=== PATIENT | male | born 1945 | race Hispanic/Latino ===

== ENCOUNTER 2018-08-02 12:34 | Day surgery (SDC) | payer MEDICARE, BC ==
[2018-06-12 11:54] VITALS: BMI 29.0
[2018-08-02 13:18] LABS: BASO # 0.04 K/mm3 (0.0-2.0); BASO % 0.4 % (0.0-3.0); EOS # 0.2 (0.0-0.7); EOS % 1.7 % (1.5-5.0); LYMPH # 2.8 (1.2-3.4); LYMPH % 27.1 % (22.0-35.0); MEAN CELL VOLUME 98.2 fl (80.0-105.0); MEAN CORPUSCULAR HEMOGLOBIN 30.2 pg (25.0-35.0); MEAN CORPUSCULAR HGB CONC 30.7 g/dl (31.0-37.0); MEAN PLATELET VOLUME 8.8 fl (7.0-11.0); MONO # 0.9 (0.1-0.6); MONO % 8.8 % (1.0-6.0); RBC 3.98 10^6/uL (3.5-6.1); RED CELL DISTRIBUTION WIDTH 15.2 % (11.5-14.5); WHITE BLOOD COUNT 10.5 10^3/uL (4.5-11.0)
[2018-08-02 13:25] LABS: CALCIUM 9.6 mg/dL (8.4-10.5); INR 0.96; PROTHROMBIN TIME 10.8 SECONDS (9.4-12.5)
[2018-08-02 13:39] VITALS: TEMP 97.8
[2018-08-02] MEDS ORDERED: Lidocaine PF 2% (5 ml) Inj (For Cardiac Arrhy) ONE ×2 (14:05→17:01)
[2018-08-02] MEDS ORDERED: Midazolam 2 MG/2 ML VIAL ONE ×2 (17:45→18:25)
[2018-08-02] MEDS ORDERED: Oxycodone/Acetaminophen 5/325 mg Tab PO PRN (18:17)
[2018-08-02] MEDS ORDERED: Sodium Chloride 0.45% 1,000 ML IV SCH (18:30)
[2018-08-02 18:31] VITALS: RESP 16; O2SAT 100
[2018-08-02 18:54] VITALS: BP 118/72; PULSE 58
--- NOTE | 2018-08-02 20:32 | VASCULAR ---
PROCEDURE: Ultrasound and fluoroscopic right internal jugular venous access port. CLINICAL HISTORY: Metastatic lung carcinoma.Venous port for chemotherapy. PHYSICIAN(S): Charlie Cruz M.D. TECHNIQUE: The relative risks and indications of the procedure were explained to the patient and consent obtained. The patient was placed supine on the arteriogram table and the right neck and chest prepped and draped in the usual sterile fashion. Conscious sedation monitoring was provided throughout the procedure by a nurse. Antibiotics were given prior to the procedure. Under direct ultrasound guidance, the right internal jugular vein was punctured with a micro-puncture set. A 0.035 angled Glidewire was advanced into the IVC. A 4 cm incision was below the right clavicle and the pocket blunted dissected. A 8 Serbian single-lumen catheter, 24 cm long, was advanced to the SVC/RA junction. The catheter was trimmed and attached to the port. The port aspirates and injects easily. The port was placed in the pocket and closed in 2 layers. The patient tolerated the procedure well. IMPRESSION: Ultrasound and fluoroscopically placed right internal jugular venous access port.
== END 2018-08-02 20:05 | disposition home or self-care (01) ==
LOC: SDS 12:34 → 3RNO 18:57 → SDS 20:05
PROVIDERS: ATTEND Radiology Vascular & Interventional Radiology
DX: C34.90 Malignant neoplasm of unspecified part of unspecified bronchus or lung (principal); I10 Essential (primary) hypertension; J44.9 Chronic obstructive pulmonary disease, unspecified; I25.10 Atherosclerotic heart disease of native coronary artery without angina pectoris; E78.5 Hyperlipidemia, unspecified